=== PATIENT | male | born 1980 | race Caucasian/White ===

== ENCOUNTER 2020-11-04 09:11 | Outpatient (REF) | payer OTHER, SELFPAY ==
--- NOTE | ~2020-11-04 | US_ITS ---
EXAMINATION: US ABDOMEN AORTA CLINICAL INFORMATION: Evaluate for aneurysm. Pulsatile mass/lump. COMPARISON: None. TECHNIQUE: Limited imaging abundant restricted to the abdominal aorta and common iliac vessels was performed. FINDINGS: The abdominal aorta is normal caliber with normal echotexture. No assess for the calcification seen. Proximal abdominal aorta measures 1.9 x 2.3 cm in AP and transverse dimension. Mid abdominal aorta measures 1.2 x 1.5 cm. Distal abdominal aorta measures 1.5 x 1.7 cm. Peak systolic velocity abdominal aorta measures 119 cm/second. Right common iliac artery measures 0.80 x 0.80 cm. Left common iliac artery measures 1.0 x 1.0 cm. US/US abdominal aortic aneurysm IMPRESSION: No evidence of aortic aneurysm.
== END 2020-11-04 09:12 | disposition home or self-care (01) ==
LOC: HO.HMGCX 09:11
PROVIDERS: Visit Provider Hospitalist
DX: R19.00 Intra-abdominal and pelvic swelling, mass and lump, unspecified site (principal)
CPT/HCPCS: 76706

== ENCOUNTER 2020-12-25 12:30 | Outpatient (REF) | payer OTHER, SELFPAY ==
--- NOTE | ~2020-12-25 | MR_ITS ---
EXAMINATION: MR SHOULDER WITHOUT CONTRAST, RIGHT CLINICAL INFORMATION: Right shoulder pain COMPARISON: None TECHNIQUE: MRI of the shoulder without contrast was performed on a high-field scanner. FINDINGS: ROTATOR CUFF: Supraspinatus tendinosis. No rotator cuff tear. No muscle atrophy or fatty infiltration. BICEPS: Normal. CORACOACROMIAL ARCH: The undersurface of the acromion is flat with no subacromial spur. Mild acromioclavicular osteoarthritis LABRUM/CAPSULE: Normal. GLENOHUMERAL JOINT/MARROW: Reactive/degenerative marrow changes of the supraspinatus tendon insertion. Bone marrow signal is otherwise unremarkable. No joint effusion. MR/MR shoulder RT wo con IMPRESSION: Supraspinatus tendinosis with reactive marrow changes at the humeral insertion. No rotator cuff tear. Mild acromioclavicular osteoarthritis.
== END 2020-12-25 12:31 | disposition home or self-care (01) ==
LOC: HO.MRI 12:30
PROVIDERS: Visit Provider Hospitalist
DX: M25.511 Pain in right shoulder (principal); G89.29 Other chronic pain
CPT/HCPCS: 73221